=== PATIENT | male | born 1950 | race Caucasian/White ===

== ENCOUNTER 2018-02-02 09:16 | Inpatient (IN) | payer MEDICARE, OTHER ==
[2018-02-02 09:38] LABS: ADD MAN DIFF? NO
[2018-02-02 09:42] LABS: BASOPHIL # 0.1 10^3/ul (0.0-0.1); BASOPHILS % 0.5 % (0.0-2.0); EOSINOPHILS # 0.4 10^3/ul (0.0-0.5); EOSINOPHILS % 2.5 % (0.0-7.0); LYMPHOCYTES # 0.8 10^3/ul (0.8-2.9); LYMPHOCYTES % 5.1 % (15.0-51.0); MEAN CORPUSCULAR HEMOGLOBIN 26.3 pg (29.0-33.0); MEAN CORPUSCULAR HGB CONC 32.6 g/dl (32.0-37.0); MEAN CORPUSCULAR VOLUME 80.8 fl (82.0-101.0); MEAN PLATELET VOLUME 8.2 fl (7.4-10.4); MONOCYTE # 0.7 10^3/ul (0.3-0.9); MONOCYTES % 4.5 % (0.0-11.0); NEUTROPHIL # 14.2 10^3/ul (1.6-7.5); NEUTROPHILS % 86.8 % (39.0-77.0); PLATELET COUNT 245 10^3/UL (140-415); RED BLOOD COUNT 5.32 10^6/ul (4.70-6.10); RED CELL DISTRIBUTION WIDTH 16.1 % (11.5-14.5)
[2018-02-02 09:42] LABS: WHITE BLOOD COUNT 16.3 10^3/ul (4.8-10.8)
[2018-02-02 10:00] LABS: ANION GAP 19 (8-16); BLOOD UREA NITROGEN 18 mg/dl (7-20); CALCIUM 9.2 mg/dl (8.4-10.2); CARBON DIOXIDE 18 mmol/L (21-31); CHLORIDE 99 mmol/L (97-110); CREATININE 1.01 mg/dl (0.61-1.24); GLUCOSE 116 mg/dl (70-220); POTASSIUM 5.1 mmol/L (3.5-5.1); SODIUM 131 mmol/L (135-144)
[2018-02-02 10:04] LABS: D-DIMER 977.39 ng/ml (<460)
[2018-02-02 10:12] LABS: B-TYPE NATRIURETIC PEPTIDE 659 PG/ML (0-125)
[2018-02-02 10:21] LABS: TROPONIN-I < 0.012 ng/ml (0.000-0.120)
[2018-02-02 10:42] LABS: AADO2 Arterial 90.2 mmHg (7.0-24.0); Allen Test ACCEPTAB; Arterial Blood Gas Oxygen Sat 93.7 mmHG (95.0-98.0); Arterial COHb 0.9 % (0.0-3.0); Arterial Fraction of Oxyhgb 92.7 % (93.0-99.0); Arterial HCO3 20.4 mmol/L (22.0-26.0); Arterial MetHb 0.2 % (0.0-1.5); Arterial Total Hemglobin 14.1 g/dl (12.0-18.0); Arterial pCO2 28.8 mmhg (35-45); MODE NASAL CANNULA; Site Left Radial
[2018-02-02] MEDS: FUROSEMIDE 40 MG INJ IV ×2 (13:09→21:07)
[2018-02-02] MEDS: ACETAMINOPHEN 500 MG TAB PO (14:06)
[2018-02-02] MEDS ORDERED: NACL 0.9% 3 ML SYG IV (16:00)
[2018-02-02] MEDS ORDERED: ONDANSETRON 4 MG INJ IV (16:00)
[2018-02-02] MEDS: SOD CHLORIDE 0.9% 100 ML (16:12)
[2018-02-02] MEDS: IOHEXOL 100 ML (16:12)
[2018-02-02] MEDS: LEVOFLOXACIN 500MG/D5W (PMX) 100 ML IVPB (19:05)
[2018-02-02] MEDS: METHYLPREDNISOLONE 40 MG INJ IV (21:08)
[2018-02-02] MEDS: TAMSULOSIN (SR) 0.4 MG CAP PO (21:15)
[2018-02-02] MEDS: ACETYLCYSTEINE 600 MG CAP PO (21:15)
[2018-02-02] MEDS: ATORVASTATIN 80 MG TAB PO (21:58)
[2018-02-02] MEDS: ALBUTEROL/IPRATROPIUM (NEB) 3 ML AMP HHN (22:11)
[2018-02-02] MEDS: ACETAMINOPHEN 325 MG TAB PO (23:11)
[2018-02-02] MEDS: ZOLPIDEM 5 MG TAB PO (23:11)
[2018-02-03] MEDS: ALBUTEROL/IPRATROPIUM (NEB) 3 ML AMP HHN ×6 (00:44→21:14)
[2018-02-03 01:21] LABS: ADD UMIC NO; UR ASCORBIC ACID NEGATIVE (NEGATIVE); UR BILIRUBIN (Dip) NEGATIVE (NEGATIVE); UR BLOOD (Dip) NEGATIVE (NEGATIVE); UR CLARITY CLEAR (CLEAR); UR COLOR STRAW (YELLOW); UR GLUCOSE (Dip) NEGATIVE (NEGATIVE); UR KETONES (Dip) NEGATIVE (NEGATIVE); UR LEUKOCYTE ESTERASE (Dip) NEGATIVE Leu/ul (NEGATIVE); UR NITRITE (Dip) NEGATIVE (NEGATIVE); UR SPECIFIC GRAVITY (Dip) 1.014 (1.003-1.030); UR TOTAL PROTEIN (Dip) NEGATIVE (NEGATIVE); UR UROBILINOGEN (Dip) NEGATIVE (NEGATIVE)
[2018-02-03] MEDS: PANTOPRAZOLE (EC) 40 MG TAB PO (05:10)
[2018-02-03] MEDS: METHYLPREDNISOLONE 40 MG INJ IV ×3 (05:10→21:28)
[2018-02-03 05:18] LABS: ADD MAN DIFF? NO
[2018-02-03 05:19] LABS: WHITE BLOOD COUNT 13.5 10^3/ul (4.8-10.8)
[2018-02-03 05:19] LABS: ABNORMAL IP MESSAGE 1; BASOPHILS % 0.2 % (0.0-2.0); HEMATOCRIT 39.7 % (42.0-52.0); HEMOGLOBIN 13.4 g/dl (14.0-18.0); LYMPHOCYTES # 0.6 10^3/ul (0.8-2.9); LYMPHOCYTES % 4.2 % (15.0-51.0); MEAN CORPUSCULAR HEMOGLOBIN 26.3 pg (29.0-33.0); MEAN CORPUSCULAR HGB CONC 33.8 g/dl (32.0-37.0); MONOCYTE # 0.1 10^3/ul (0.3-0.9); NEUTROPHIL # 12.7 10^3/ul (1.6-7.5); NEUTROPHILS % 94.2 % (39.0-77.0); PLATELET COUNT 277 10^3/UL (140-415); POSITIVE DIFF @See below; RED BLOOD COUNT 5.09 10^6/ul (4.70-6.10); RED CELL DISTRIBUTION WIDTH 16.2 % (11.5-14.5)
[2018-02-03] MEDS: ACETAMINOPHEN 325 MG TAB PO ×2 (05:21→13:58)
[2018-02-03 06:07] LABS: ALANINE AMINOTRANSFERASE 33 IU/L (13-69); ALBUMIN 4.2 g/dl (3.3-4.9); ALBUMIN/GLOBULIN RATIO 1.02; ALKALINE PHOSPHATASE 144 IU/L (42-121); ANION GAP 21 (8-16); ASPARTATE AMINO TRANSFERASE 35 IU/L (15-46); BILIRUBIN,INDIRECT 1.9 mg/dl (0-1.1); BILIRUBIN,TOTAL 1.9 mg/dl (0.2-1.3); BLOOD UREA NITROGEN 24 mg/dl (7-20); CALCIUM 9.1 mg/dl (8.4-10.2); CARBON DIOXIDE 22 mmol/L (21-31); CHLORIDE 94 mmol/L (97-110); CREATININE 1.22 mg/dl (0.61-1.24); GLUCOSE 161 mg/dl (70-220); MAGNESIUM 1.6 mg/dl (1.7-2.5); PHOSPHORUS 5.2 mg/dl (2.5-4.9); POTASSIUM 4.9 mmol/L (3.5-5.1); SODIUM 132 mmol/L (135-144); TOTAL PROTEIN 8.3 g/dl (6.1-8.1)
[2018-02-03 06:17] LABS: TROPONIN-I < 0.012 ng/ml (0.000-0.120)
[2018-02-03] MEDS: FINASTERIDE 5 MG TAB PO (09:03)
[2018-02-03] MEDS: ACETYLCYSTEINE 600 MG CAP PO ×2 (09:03→21:29)
[2018-02-03] MEDS: FUROSEMIDE 40 MG INJ IV (09:04)
[2018-02-03] MEDS: ASPIRIN (EC) 81 MG TAB PO (09:04)
[2018-02-03] MEDS: BENAZEPRIL 40 MG TAB PO (09:04)
[2018-02-03] MEDS: ENOXAPARIN 40 MG/0.4 ML SYG SC (09:05)
[2018-02-03] MEDS: CLOPIDOGREL 75 MG TAB PO (09:49)
[2018-02-03] MEDS: LORATADINE 10 MG TAB PO (09:49)
[2018-02-03] MEDS: ISOSORBIDE MONONITRATE(SR)60 MG TAB PO (09:50)
[2018-02-03 13:06] LABS: TROPONIN-I < 0.012 ng/ml (0.000-0.120)
[2018-02-03] MEDS ORDERED: MAGNESIUM SULFATE 2 GM/50 ML 50 ML IVPB (15:00)
[2018-02-03] MEDS: LEVOFLOXACIN 500MG/D5W (PMX) 100 ML IVPB (15:14)
[2018-02-03] MEDS: MAGNESIUM SULFATE 1 GM/D5W 100 ML IVPB ×2 (16:30→18:04)
[2018-02-03] MEDS: morphine 2 MG INJ IV (21:17)
[2018-02-03] MEDS: METOPROLOL (XL) 50 MG TAB PO (21:18)
[2018-02-03] MEDS: TAMSULOSIN (SR) 0.4 MG CAP PO (21:28)
[2018-02-03] MEDS: ATORVASTATIN 80 MG TAB PO (21:28)
[2018-02-03] MEDS: HEPARIN 5,000 UNIT/0.5 ML VIAL SC (21:38)
[2018-02-03] MEDS: ZOLPIDEM 5 MG TAB PO (23:18)
[2018-02-04] MEDS: ALBUTEROL/IPRATROPIUM (NEB) 3 ML AMP HHN ×6 (01:30→20:39)
[2018-02-04] MEDS: ACETAMINOPHEN 325 MG TAB PO (03:49)
[2018-02-04] MEDS: METHYLPREDNISOLONE 40 MG INJ IV ×3 (07:08→21:03)
[2018-02-04] MEDS: PANTOPRAZOLE (EC) 40 MG TAB PO (07:08)
[2018-02-04] MEDS: CLOPIDOGREL 75 MG TAB PO (08:26)
[2018-02-04] MEDS: LORATADINE 10 MG TAB PO (08:26)
[2018-02-04] MEDS: ISOSORBIDE MONONITRATE(SR)60 MG TAB PO (08:27)
[2018-02-04] MEDS: METOPROLOL (XL) 50 MG TAB PO ×2 (08:27→21:00)
[2018-02-04] MEDS: ASPIRIN (EC) 81 MG TAB PO (08:27)
[2018-02-04] MEDS: FINASTERIDE 5 MG TAB PO (08:27)
[2018-02-04] MEDS: ACETYLCYSTEINE 600 MG CAP PO (08:27)
[2018-02-04] MEDS: FUROSEMIDE 40 MG INJ IV (08:28)
[2018-02-04] MEDS: morphine 2 MG INJ IV (08:28)
[2018-02-04] MEDS: HEPARIN 5,000 UNIT/0.5 ML VIAL SC ×2 (08:33→21:12)
[2018-02-04 08:58] LABS: ADD MAN DIFF? NO
[2018-02-04 09:09] LABS: BASOPHILS % 0.1 % (0.0-2.0); HEMOGLOBIN 12.7 g/dl (14.0-18.0); LYMPHOCYTES # 0.8 10^3/ul (0.8-2.9); LYMPHOCYTES % 4.5 % (15.0-51.0); MEAN CORPUSCULAR HEMOGLOBIN 26.1 pg (29.0-33.0); MEAN CORPUSCULAR HGB CONC 33.4 g/dl (32.0-37.0); MEAN CORPUSCULAR VOLUME 78.2 fl (82.0-101.0); MEAN PLATELET VOLUME 9.1 fl (7.4-10.4); MONOCYTE # 0.7 10^3/ul (0.3-0.9); NEUTROPHIL # 15.9 10^3/ul (1.6-7.5); PLATELET COUNT 273 10^3/UL (140-415); RED BLOOD COUNT 4.86 10^6/ul (4.70-6.10)
[2018-02-04 09:09] LABS: WHITE BLOOD COUNT 17.4 10^3/ul (4.8-10.8)
[2018-02-04 09:33] LABS: MAGNESIUM 2.2 mg/dl (1.7-2.5)
[2018-02-04 09:33] LABS: PHOSPHORUS 4.7 mg/dl (2.5-4.9)
[2018-02-04 09:44] LABS: CHOLESTEROL 105 mg/dl (100-200)
[2018-02-04 09:44] LABS: CHOL/HDL RATIO 3.3 RATIO; HDL CHOLESTEROL 31 mg/dl (30-78); LDL CHOLESTEROL,CALCULATED 54 mg/dl; TRIGLYCERIDES 98 mg/dl (0-149)
[2018-02-04 09:46] LABS: ANION GAP 16 (8-16); BLOOD UREA NITROGEN 32 mg/dl (7-20); CALCIUM 8.8 mg/dl (8.4-10.2); CARBON DIOXIDE 25 mmol/L (21-31); CHLORIDE 91 mmol/L (97-110); CREATININE 1.02 mg/dl (0.61-1.24); GLUCOSE 164 mg/dl (70-220); POTASSIUM 5.2 mmol/L (3.5-5.1); SODIUM 127 mmol/L (135-144)
[2018-02-04] MEDS: LEVOFLOXACIN 500MG/D5W (PMX) 100 ML IVPB (15:14)
[2018-02-04 19:42] LABS: SODIUM,URINE RANDOM < 13 mmol/L (30-90)
[2018-02-04] MEDS: ATORVASTATIN 80 MG TAB PO (20:55)
[2018-02-04] MEDS: HYDROCODONE/APAP (5/325) TAB PO (20:59)
[2018-02-04] MEDS: TAMSULOSIN (SR) 0.4 MG CAP PO (21:00)
[2018-02-04 22:37] LABS: OSMOLALITY,URINE 334 mOsm/kg (250-1200)
[2018-02-04] MEDS: CEPASTAT LOZENGE MT (22:42)
[2018-02-04] MEDS: LORAZEPAM 2 MG INJ IV (22:47)
[2018-02-05] MEDS: ALBUTEROL/IPRATROPIUM (NEB) 3 ML AMP HHN ×6 (00:30→20:35)
[2018-02-05] MEDS: METHYLPREDNISOLONE 40 MG INJ IV ×2 (05:17→13:28)
[2018-02-05] MEDS: morphine 2 MG INJ IV ×2 (05:18→19:36)
[2018-02-05] MEDS: PANTOPRAZOLE (EC) 40 MG TAB PO (05:25)
[2018-02-05] MEDS: CEPASTAT LOZENGE MT ×2 (07:37→21:25)
[2018-02-05] MEDS: HYDROCODONE/APAP (5/325) TAB PO (07:38)
[2018-02-05 09:11] LABS: ADD MAN DIFF? NO
[2018-02-05 09:22] LABS: BASOPHILS % 0.1 % (0.0-2.0); HEMATOCRIT 39.2 % (42.0-52.0); HEMOGLOBIN 12.9 g/dl (14.0-18.0); LYMPHOCYTES # 0.7 10^3/ul (0.8-2.9); MEAN CORPUSCULAR HEMOGLOBIN 25.9 pg (29.0-33.0); MEAN CORPUSCULAR HGB CONC 32.9 g/dl (32.0-37.0); MEAN CORPUSCULAR VOLUME 78.7 fl (82.0-101.0); MEAN PLATELET VOLUME 9.3 fl (7.4-10.4); MONOCYTE # 0.6 10^3/ul (0.3-0.9); MONOCYTES % 3.7 % (0.0-11.0); NEUTROPHIL # 15.6 10^3/ul (1.6-7.5); NEUTROPHILS % 91.4 % (39.0-77.0); PLATELET COUNT 278 10^3/UL (140-415); RED BLOOD COUNT 4.98 10^6/ul (4.70-6.10); RED CELL DISTRIBUTION WIDTH 15.9 % (11.5-14.5)
[2018-02-05 09:22] LABS: WHITE BLOOD COUNT 17.1 10^3/ul (4.8-10.8)
[2018-02-05] MEDS: LORATADINE 10 MG TAB PO (09:29)
[2018-02-05] MEDS: ASPIRIN (EC) 81 MG TAB PO (09:29)
[2018-02-05] MEDS: CLOPIDOGREL 75 MG TAB PO (09:29)
[2018-02-05] MEDS: FINASTERIDE 5 MG TAB PO (09:30)
[2018-02-05] MEDS: METOPROLOL (XL) 50 MG TAB PO ×2 (09:30→20:13)
[2018-02-05] MEDS: ISOSORBIDE MONONITRATE(SR)60 MG TAB PO (09:30)
[2018-02-05 09:34] LABS: ANION GAP 14 (8-16); BLOOD UREA NITROGEN 25 mg/dl (7-20); CALCIUM 8.8 mg/dl (8.4-10.2); CARBON DIOXIDE 28 mmol/L (21-31); CHLORIDE 93 mmol/L (97-110); CREATININE 0.87 mg/dl (0.61-1.24); GLUCOSE 157 mg/dl (70-220); POTASSIUM 5.1 mmol/L (3.5-5.1); SODIUM 130 mmol/L (135-144)
[2018-02-05 09:40] LABS: PHOSPHORUS 3.5 mg/dl (2.5-4.9)
[2018-02-05] MEDS: DOCUSATE SODIUM 100 MG CAP PO (12:14)
[2018-02-05] MEDS: SALINE 0.65% 45 ML NAS SPRAY NASAL (12:15)
[2018-02-05] MEDS: LORAZEPAM 2 MG INJ IV ×2 (13:23→21:26)
[2018-02-05] MEDS: LEVOFLOXACIN 500MG/D5W (PMX) 100 ML IVPB (14:23)
[2018-02-05] MEDS: ATORVASTATIN 80 MG TAB PO (20:12)
[2018-02-05] MEDS: GUAIFENESIN/DM 5ML CUP PO (20:12)
[2018-02-05] MEDS: TAMSULOSIN (SR) 0.4 MG CAP PO (20:12)
[2018-02-05] MEDS ORDERED: GABAPENTIN (50 MG/ML PO SYG) GTB (21:00)
[2018-02-05] MEDS: GABAPENTIN (50 MG/ML PO SYG) GTB (21:25)
[2018-02-06] MEDS: ALBUTEROL/IPRATROPIUM (NEB) 3 ML AMP HHN ×6 (01:26→21:36)
[2018-02-06] MEDS: GUAIFENESIN/DM 5ML CUP PO ×2 (06:44→19:44)
[2018-02-06] MEDS: PANTOPRAZOLE (EC) 40 MG TAB PO (06:44)
[2018-02-06] MEDS: morphine 2 MG INJ IV (06:46)
[2018-02-06] MEDS: CLOPIDOGREL 75 MG TAB PO (09:10)
[2018-02-06] MEDS: GABAPENTIN (50 MG/ML PO SYG) GTB ×3 (09:10→20:41)
[2018-02-06] MEDS: METHYLPREDNISOLONE 40 MG INJ IV (09:10)
[2018-02-06] MEDS: METOPROLOL (XL) 50 MG TAB PO ×2 (09:11→20:42)
[2018-02-06] MEDS: ISOSORBIDE MONONITRATE(SR)60 MG TAB PO (09:11)
[2018-02-06] MEDS: FINASTERIDE 5 MG TAB PO (09:11)
[2018-02-06] MEDS: ASPIRIN (EC) 81 MG TAB PO (09:11)
[2018-02-06] MEDS: LORATADINE 10 MG TAB PO (09:11)
[2018-02-06] MEDS: LORAZEPAM 2 MG INJ IV ×2 (12:26→20:42)
[2018-02-06 15:03] LABS: Allen Test ACCEPTAB; Arterial Base Excess -1.6 mmol/L (-3.0-3); Arterial Blood Gas Oxygen Sat 88.2 mmHG (95.0-98.0); Arterial COHb 0.6 % (0.0-3.0); Arterial Fraction of Oxyhgb 87.5 % (93.0-99.0); Arterial HCO3 22.5 mmol/L (22.0-26.0); Arterial MetHb 0.2 % (0.0-1.5); Arterial Total Hemglobin 14.3 g/dl (12.0-18.0); Arterial pCO2 36.3 mmhg (35-45); Site Right Radial
[2018-02-06] MEDS: LEVOFLOXACIN 500MG/D5W (PMX) 100 ML IVPB (15:35)
[2018-02-06 15:50] LABS: AADO2 Arterial 49.5 mmHg (7.0-24.0); MODE ROOM AIR
[2018-02-06] MEDS: morphine LIQ (10 MG/5 ML) CUP PO (19:43)
[2018-02-06] MEDS: TAMSULOSIN (SR) 0.4 MG CAP PO (20:41)
[2018-02-06] MEDS: ATORVASTATIN 80 MG TAB PO (20:42)
[2018-02-07] MEDS: HYDROCODONE/APAP (5/325) TAB PO ×4 (00:38→21:58)
[2018-02-07] MEDS: GUAIFENESIN/DM 5ML CUP PO ×2 (00:38→06:41)
[2018-02-07] MEDS: ALBUTEROL/IPRATROPIUM (NEB) 3 ML AMP HHN ×6 (01:02→21:11)
[2018-02-07] MEDS: PANTOPRAZOLE (EC) 40 MG TAB PO (06:41)
[2018-02-07 07:04] LABS: ADD MAN DIFF? NO
[2018-02-07 07:11] LABS: ABNORMAL IP MESSAGE 1; BASOPHILS % 0.1 % (0.0-2.0); EOSINOPHILS # 0.1 10^3/ul (0.0-0.5); EOSINOPHILS % 0.4 % (0.0-7.0); HEMATOCRIT 41.6 % (42.0-52.0); HEMOGLOBIN 13.4 g/dl (14.0-18.0); LYMPHOCYTES # 2.6 10^3/ul (0.8-2.9); LYMPHOCYTES % 18.6 % (15.0-51.0); MEAN CORPUSCULAR HEMOGLOBIN 25.9 pg (29.0-33.0); MEAN CORPUSCULAR HGB CONC 32.2 g/dl (32.0-37.0); MEAN CORPUSCULAR VOLUME 80.5 fl (82.0-101.0); MEAN PLATELET VOLUME 9.1 fl (7.4-10.4); MONOCYTE # 1.8 10^3/ul (0.3-0.9); MONOCYTES % 12.4 % (0.0-11.0); NEUTROPHIL # 9.6 10^3/ul (1.6-7.5); NEUTROPHILS % 67.7 % (39.0-77.0); PLATELET COUNT 270 10^3/UL (140-415); POSITIVE DIFF @See below; RED BLOOD COUNT 5.17 10^6/ul (4.70-6.10); RED CELL DISTRIBUTION WIDTH 15.9 % (11.5-14.5)
[2018-02-07 07:11] LABS: WHITE BLOOD COUNT 14.2 10^3/ul (4.8-10.8)
[2018-02-07 07:37] LABS: ANION GAP 6 (8-16); BLOOD UREA NITROGEN 16 mg/dl (7-20); CALCIUM 8.9 mg/dl (8.4-10.2); CARBON DIOXIDE 30 mmol/L (21-31); CHLORIDE 99 mmol/L (97-110); CREATININE 0.87 mg/dl (0.61-1.24); GLUCOSE 104 mg/dl (70-220); POTASSIUM 4.3 mmol/L (3.5-5.1); SODIUM 131 mmol/L (135-144)
[2018-02-07] MEDS: ASPIRIN (EC) 81 MG TAB PO (08:38)
[2018-02-07] MEDS: GABAPENTIN (50 MG/ML PO SYG) GTB ×3 (08:39→21:53)
[2018-02-07] MEDS: METHYLPREDNISOLONE 40 MG INJ IV (08:39)
[2018-02-07] MEDS: METOPROLOL (XL) 50 MG TAB PO ×2 (08:39→21:54)
[2018-02-07] MEDS: FINASTERIDE 5 MG TAB PO (08:39)
[2018-02-07] MEDS: LORATADINE 10 MG TAB PO (08:39)
[2018-02-07] MEDS: ISOSORBIDE MONONITRATE(SR)60 MG TAB PO (08:39)
[2018-02-07] MEDS: CLOPIDOGREL 75 MG TAB PO (08:39)
[2018-02-07] MEDS: LORAZEPAM 2 MG INJ IV (11:43)
[2018-02-07] MEDS: LEVOFLOXACIN 500MG/D5W (PMX) 100 ML IVPB (15:11)
[2018-02-07] MEDS: TAMSULOSIN (SR) 0.4 MG CAP PO (21:54)
[2018-02-07] MEDS: ATORVASTATIN 80 MG TAB PO (21:54)
[2018-02-08] MEDS: ALBUTEROL/IPRATROPIUM (NEB) 3 ML AMP HHN ×6 (01:26→20:29)
[2018-02-08] MEDS: CEPASTAT LOZENGE MT ×3 (03:19→20:53)
[2018-02-08] MEDS: LORAZEPAM 2 MG INJ IV ×3 (05:27→22:55)
[2018-02-08] MEDS: PANTOPRAZOLE (EC) 40 MG TAB PO (05:28)
[2018-02-08] MEDS: HYDROCODONE/APAP (5/325) TAB PO ×2 (06:17→12:18)
[2018-02-08] MEDS: GABAPENTIN (50 MG/ML PO SYG) GTB ×3 (08:31→20:44)
[2018-02-08] MEDS: ASPIRIN (EC) 81 MG TAB PO (08:31)
[2018-02-08] MEDS: LORATADINE 10 MG TAB PO (08:32)
[2018-02-08] MEDS: FINASTERIDE 5 MG TAB PO (08:32)
[2018-02-08] MEDS: predniSONE 20 MG TAB PO (08:32)
[2018-02-08] MEDS: CLOPIDOGREL 75 MG TAB PO (08:32)
[2018-02-08] MEDS: METOPROLOL (XL) 50 MG TAB PO ×2 (08:33→20:45)
[2018-02-08] MEDS: ISOSORBIDE MONONITRATE(SR)60 MG TAB PO (08:34)
[2018-02-08] MEDS: FUROSEMIDE 40 MG TAB PO (12:18)
[2018-02-08] MEDS: LEVOFLOXACIN 500MG/D5W (PMX) 100 ML IVPB (15:00)
[2018-02-08] MEDS ORDERED: LEVOFLOXACIN 500 MG TAB PO (15:00)
[2018-02-08] MEDS: ATORVASTATIN 80 MG TAB PO (20:45)
[2018-02-08] MEDS: TAMSULOSIN (SR) 0.4 MG CAP PO (20:45)
[2018-02-08] MEDS: morphine LIQ (10 MG/5 ML) CUP PO (20:46)
[2018-02-08] MEDS: DOCUSATE SODIUM 100 MG CAP PO (22:55)
[2018-02-09] MEDS: ALBUTEROL/IPRATROPIUM (NEB) 3 ML AMP HHN ×5 (00:58→16:50)
[2018-02-09] MEDS: HYDROCODONE/APAP (5/325) TAB PO ×2 (04:10→11:59)
[2018-02-09] MEDS: PANTOPRAZOLE (EC) 40 MG TAB PO (06:21)
[2018-02-09] MEDS: LEVOFLOXACIN 500 MG TAB PO (06:21)
[2018-02-09 07:58] LABS: ADD MAN DIFF? NO
[2018-02-09 08:01] LABS: BASOPHILS % 0.2 % (0.0-2.0); EOSINOPHILS # 0.1 10^3/ul (0.0-0.5); EOSINOPHILS % 0.7 % (0.0-7.0); HEMATOCRIT 40.8 % (42.0-52.0); HEMOGLOBIN 13.1 g/dl (14.0-18.0); LYMPHOCYTES # 2.1 10^3/ul (0.8-2.9); LYMPHOCYTES % 12.9 % (15.0-51.0); MEAN CORPUSCULAR HEMOGLOBIN 25.7 pg (29.0-33.0); MEAN CORPUSCULAR HGB CONC 32.1 g/dl (32.0-37.0); MEAN CORPUSCULAR VOLUME 80.2 fl (82.0-101.0); MEAN PLATELET VOLUME 8.7 fl (7.4-10.4); MONOCYTE # 1.4 10^3/ul (0.3-0.9); MONOCYTES % 8.8 % (0.0-11.0); NEUTROPHIL # 12.2 10^3/ul (1.6-7.5); PLATELET COUNT 290 10^3/UL (140-415); RED BLOOD COUNT 5.09 10^6/ul (4.70-6.10)
[2018-02-09 08:01] LABS: WHITE BLOOD COUNT 16.1 10^3/ul (4.8-10.8)
[2018-02-09 08:20] LABS: MAGNESIUM 1.9 mg/dl (1.7-2.5)
[2018-02-09 08:23] LABS: ANION GAP 14 (8-16); BLOOD UREA NITROGEN 18 mg/dl (7-20); CALCIUM 8.8 mg/dl (8.4-10.2); CARBON DIOXIDE 32 mmol/L (21-31); CHLORIDE 91 mmol/L (97-110); CREATININE 0.83 mg/dl (0.61-1.24); GLUCOSE 99 mg/dl (70-220); POTASSIUM 4.3 mmol/L (3.5-5.1); SODIUM 133 mmol/L (135-144)
[2018-02-09] MEDS: LORATADINE 10 MG TAB PO (09:00)
[2018-02-09] MEDS: GABAPENTIN (50 MG/ML PO SYG) GTB ×2 (09:05→13:03)
[2018-02-09] MEDS: CLOPIDOGREL 75 MG TAB PO (09:06)
[2018-02-09] MEDS: FUROSEMIDE 40 MG TAB PO (09:06)
[2018-02-09] MEDS: ASPIRIN (EC) 81 MG TAB PO (09:07)
[2018-02-09] MEDS: ISOSORBIDE MONONITRATE(SR)60 MG TAB PO (09:07)
[2018-02-09] MEDS: predniSONE 20 MG TAB PO (09:07)
[2018-02-09] MEDS: FINASTERIDE 5 MG TAB PO (09:08)
[2018-02-09] MEDS: METOPROLOL (XL) 50 MG TAB PO (09:08)
[2018-02-09] MEDS: LORAZEPAM 2 MG INJ IV ×2 (09:15→17:26)
== END 2018-02-09 18:00 | DRG 196 ==
LOC: E/R 09:16 → MS3 19:27 → TEL 02-03 20:06 → MS3 14:56
DX: J84.112 Idiopathic pulmonary fibrosis (principal); J96.21 Acute and chronic respiratory failure with hypoxia; J18.9 Pneumonia, unspecified organism; E87.1 Hypo-osmolality and hyponatremia; E87.2 Acidosis; I25.810 Atherosclerosis of coronary artery bypass graft(s) without angina pectoris; I50.32 Chronic diastolic (congestive) heart failure; R04.2 Hemoptysis; I11.0 Hypertensive heart disease with heart failure; Z99.81 Dependence on supplemental oxygen; E87.5 Hyperkalemia; J43.2 Centrilobular emphysema; E78.5 Hyperlipidemia, unspecified; N40.0 Benign prostatic hyperplasia without lower urinary tract symptoms; Z79.82 Long term (current) use of aspirin; Z95.1 Presence of aortocoronary bypass graft; Z87.891 Personal history of nicotine dependence; Z79.02 Long term (current) use of antithrombotics/antiplatelets
CPT/HCPCS: 36415; 36600; 71045; 71275; 80048; 80053; 80061; 81003; 82803; 83735; 83880; 83935; 84100; 84300; 84484; 85025; 85378; 87040; 93005; 93306; 94640; 94664; 96374; 96375; 97116; 97162; 99291-25

== ENCOUNTER 2018-03-06 01:46 | Inpatient (IN) | payer MEDICARE, OTHER ==
[2018-03-06] MEDS ORDERED: METHYLPREDNISOLONE 125 MG INJ (01:57)
[2018-03-06] MEDS: SODIUM CHLORIDE 0.9% 1L BAG IV* (02:00)
[2018-03-06] MEDS: METHYLPREDNISOLONE 125 MG INJ IV ×3 (02:03→12:13)
[2018-03-06] MEDS: IPRATROPIUM (NEB) 0.5 MG/2.5 ML AMP INH (02:18)
[2018-03-06] MEDS: LEVALBUTEROL (NEB) 1.25 MG/0.5 ML AMP INH (02:18)
[2018-03-06 02:19] LABS: ADD MAN DIFF? NO
[2018-03-06 02:25] LABS: WHITE BLOOD COUNT 9.5 10^3/ul (4.8-10.8)
[2018-03-06 02:25] LABS: BASOPHILS % 0.4 % (0.0-2.0); EOSINOPHILS # 0.5 10^3/ul (0.0-0.5); EOSINOPHILS % 5.3 % (0.0-7.0); HEMATOCRIT 37.3 % (42.0-52.0); HEMOGLOBIN 12.2 g/dl (14.0-18.0); LYMPHOCYTES # 1.5 10^3/ul (0.8-2.9); LYMPHOCYTES % 16.1 % (15.0-51.0); MEAN CORPUSCULAR HEMOGLOBIN 25.1 pg (29.0-33.0); MEAN CORPUSCULAR HGB CONC 32.7 g/dl (32.0-37.0); MEAN CORPUSCULAR VOLUME 76.6 fl (82.0-101.0); MEAN PLATELET VOLUME 8.5 fl (7.4-10.4); MONOCYTE # 0.8 10^3/ul (0.3-0.9); MONOCYTES % 8.7 % (0.0-11.0); NEUTROPHIL # 6.5 10^3/ul (1.6-7.5); NEUTROPHILS % 68.2 % (39.0-77.0); PLATELET COUNT 298 10^3/UL (140-415); RED BLOOD COUNT 4.87 10^6/ul (4.70-6.10); RED CELL DISTRIBUTION WIDTH 17.2 % (11.5-14.5)
[2018-03-06 02:42] LABS: LACTIC ACID 1.7 mmol/L (0.5-2.0)
[2018-03-06 02:43] LABS: ALANINE AMINOTRANSFERASE 48 IU/L (13-69); ALBUMIN 3.6 g/dl (3.3-4.9); ALBUMIN/GLOBULIN RATIO 1.05; ALKALINE PHOSPHATASE 136 IU/L (42-121); ANION GAP 16 (8-16); ASPARTATE AMINO TRANSFERASE 33 IU/L (15-46); BILIRUBIN,INDIRECT 1.4 mg/dl (0-1.1); BILIRUBIN,TOTAL 1.4 mg/dl (0.2-1.3); BLOOD UREA NITROGEN 11 mg/dl (7-20); CALCIUM 8.2 mg/dl (8.4-10.2); CARBON DIOXIDE 23 mmol/L (21-31); CHLORIDE 92 mmol/L (97-110); CREATININE 0.79 mg/dl (0.61-1.24); GLUCOSE 111 mg/dl (70-220); PARTIAL THROMBOPLASTIN TIME 33.2 Sec (25.0-35.0); POTASSIUM 5.1 mmol/L (3.5-5.1); PROTIME 13.3 Sec (11.9-14.9); SODIUM 126 mmol/L (135-144)
[2018-03-06 02:54] LABS: TROPONIN-I 0.012 ng/ml (0.000-0.120)
[2018-03-06 04:17] LABS: AADO2 Arterial 170.6 mmHg (7.0-24.0); Allen Test ACCEPTAB; Arterial Blood Gas Oxygen Sat 93.8 mmHG (95.0-98.0); Arterial Fraction of Oxyhgb 92.6 % (93.0-99.0); Arterial HCO3 20.5 mmol/L (22.0-26.0); Arterial MetHb 0.3 % (0.0-1.5); Arterial Total Hemglobin 12.8 g/dl (12.0-18.0); Arterial pCO2 32.1 mmhg (35-45); MODE NASAL CANNULA; Site Right Radial
[2018-03-06] MEDS: ACETAMINOPHEN 325 MG TAB PO ×2 (04:24→08:14)
[2018-03-06] MEDS: LEVOFLOXACIN 750MG/D5W (PMX) 150 ML IVPB (05:07)
[2018-03-06 06:28] LABS: LACTIC ACID 1.6 mmol/L (0.5-2.0)
[2018-03-06 07:49] LABS: LACTIC ACID 2.8 mmol/L (0.5-2.0)
[2018-03-06] MEDS ORDERED: ALBUTEROL HFA 8 GM INHALER INH (08:00)
[2018-03-06] MEDS ORDERED: ONDANSETRON 4 MG INJ IV (08:00)
[2018-03-06] MEDS ORDERED: DOCUSATE SODIUM 100 MG CAP PO (08:00)
[2018-03-06] MEDS ORDERED: NA PHOSPHATE/BIPHOS 133 ML ENEMA PR (08:00)
[2018-03-06] MEDS ORDERED: BISACODYL (EC) 5 MG TAB PO (08:00)
[2018-03-06] MEDS ORDERED: IPRATROPIUM (NEB) 0.5 MG/2.5 ML AMP INH (08:00)
[2018-03-06] MEDS ORDERED: ALBUTEROL/IPRATROPIUM (NEB) 3 ML AMP NEB (08:00)
[2018-03-06] MEDS ORDERED: ACETAMINOPHEN 650MG/20.3ML CUP PO (08:00)
[2018-03-06] MEDS ORDERED: FLUMAZENIL 0.5 MG INJ IV (08:00)
[2018-03-06] MEDS ORDERED: MAGNESIUM HYDROXIDE 30ML CUP PO (08:00)
[2018-03-06] MEDS: ASPIRIN (EC) 81 MG TAB PO (08:14)
[2018-03-06] MEDS: FAMOTIDINE 20 MG INJ IV ×2 (08:14→20:16)
[2018-03-06] MEDS: CEFTRIAXONE 1 GM/50 ML (PMX) 50 ML IVPB (08:14)
[2018-03-06] MEDS: FINASTERIDE 5 MG TAB PO (08:14)
[2018-03-06] MEDS: SOD CHLORIDE 0.9% 1,000 ML IV (08:14)
[2018-03-06] MEDS: LORAZEPAM 1 MG TAB PO (08:14)
[2018-03-06] MEDS: ENOXAPARIN 40 MG/0.4 ML SYG SC (08:23)
[2018-03-06 08:40] LABS: HEMOGLOBIN A1C 6.8 % (0-5.9)
[2018-03-06] MEDS: BENAZEPRIL 40 MG TAB PO (09:20)
[2018-03-06] MEDS: LORATADINE 10 MG TAB PO (09:20)
[2018-03-06] MEDS: ALBUTEROL/IPRATROPIUM (NEB) 3 ML AMP NEB ×4 (09:39→21:31)
[2018-03-06] MEDS: HYDROCODONE/APAP (5/325) TAB PO (13:43)
[2018-03-06] MEDS: NITROGLYCERIN (SL) 0.4 MG TAB SL (14:55)
[2018-03-06] MEDS: morphine 2 MG INJ IV ×2 (15:08→22:53)
[2018-03-06 15:42] LABS: TROPONIN-I < 0.010 ng/ml (0.000-0.120)
[2018-03-06] MEDS: METHYLPREDNISOLONE 40 MG INJ IV (17:18)
[2018-03-06] MEDS: TAMSULOSIN (SR) 0.4 MG CAP PO (20:12)
[2018-03-06] MEDS: ATORVASTATIN 80 MG TAB PO (20:12)
[2018-03-06] MEDS: METOPROLOL 25 MG TAB PO (20:13)
[2018-03-07] MEDS: ALBUTEROL/IPRATROPIUM (NEB) 3 ML AMP NEB ×5 (01:28→17:01)
[2018-03-07] MEDS: ACETAMINOPHEN 325 MG TAB PO (03:33)
[2018-03-07] MEDS: HYDROCODONE/APAP (5/325) TAB PO ×5 (03:34→20:46)
[2018-03-07 05:27] LABS: ADD MAN DIFF? NO
[2018-03-07 05:33] LABS: BASOPHILS % 0.1 % (0.0-2.0); HEMATOCRIT 33.5 % (42.0-52.0); HEMOGLOBIN 11.1 g/dl (14.0-18.0); LYMPHOCYTES # 0.6 10^3/ul (0.8-2.9); LYMPHOCYTES % 5.1 % (15.0-51.0); MEAN CORPUSCULAR HEMOGLOBIN 25.3 pg (29.0-33.0); MEAN CORPUSCULAR HGB CONC 33.1 g/dl (32.0-37.0); MEAN CORPUSCULAR VOLUME 76.3 fl (82.0-101.0); MEAN PLATELET VOLUME 8.6 fl (7.4-10.4); MONOCYTE # 0.4 10^3/ul (0.3-0.9); MONOCYTES % 3.6 % (0.0-11.0); NEUTROPHIL # 10.7 10^3/ul (1.6-7.5); NEUTROPHILS % 90.2 % (39.0-77.0); PLATELET COUNT 259 10^3/UL (140-415); RED BLOOD COUNT 4.39 10^6/ul (4.70-6.10)
[2018-03-07 05:33] LABS: WHITE BLOOD COUNT 11.9 10^3/ul (4.8-10.8)
[2018-03-07] MEDS: METHYLPREDNISOLONE 40 MG INJ IV ×4 (05:44→19:23)
[2018-03-07 06:04] LABS: ANION GAP 15 (8-16); BLOOD UREA NITROGEN 10 mg/dl (7-20); CALCIUM 8.5 mg/dl (8.4-10.2); CARBON DIOXIDE 23 mmol/L (21-31); CHLORIDE 98 mmol/L (97-110); CREATININE 0.59 mg/dl (0.61-1.24); GLUCOSE 164 mg/dl (70-220); POTASSIUM 4.5 mmol/L (3.5-5.1); SODIUM 131 mmol/L (135-144)
[2018-03-07] MEDS: LORAZEPAM 1 MG TAB PO ×3 (07:30→19:42)
[2018-03-07] MEDS: SOD CHLORIDE 0.9% 1,000 ML IV (07:35)
[2018-03-07] MEDS: LORATADINE 10 MG TAB PO ×2 (08:38→08:42)
[2018-03-07] MEDS: FAMOTIDINE 20 MG INJ IV ×2 (08:38→20:47)
[2018-03-07] MEDS: FINASTERIDE 5 MG TAB PO (08:38)
[2018-03-07] MEDS: ASPIRIN (EC) 81 MG TAB PO (08:38)
[2018-03-07] MEDS: METOPROLOL 25 MG TAB PO (08:39)
[2018-03-07] MEDS: BENAZEPRIL 40 MG TAB PO (08:39)
[2018-03-07] MEDS: CEFTRIAXONE 1 GM/50 ML (PMX) 50 ML IVPB (08:40)
[2018-03-07] MEDS: ENOXAPARIN 40 MG/0.4 ML SYG SC ×2 (08:41→20:50)
[2018-03-07] MEDS: IOHEXOL 100 ML (12:35)
[2018-03-07] MEDS: SOD CHLORIDE 0.9% 100 ML (12:36)
[2018-03-07 13:20] LABS: TROPONIN-I 0.766 ng/ml (0.000-0.120)
[2018-03-07] MEDS: INSULIN ASPART [NOVOLOG] 3 ML PEN SC ×2 (17:35→20:50)
[2018-03-07] MEDS: NITROGLYCERIN (SL) 0.4 MG TAB SL ×3 (18:15→18:25)
[2018-03-07] MEDS: morphine 2 MG INJ IV (18:18)
[2018-03-07] MEDS: ATORVASTATIN 80 MG TAB PO (20:46)
[2018-03-07] MEDS: ZOLPIDEM 5 MG TAB PO (20:46)
[2018-03-07] MEDS: METOPROLOL 50 MG TAB PO (20:47)
[2018-03-07] MEDS: TAMSULOSIN (SR) 0.4 MG CAP PO (20:47)
[2018-03-07] MEDS: LEVALBUTEROL (NEB) 0.63 MG/3 ML AMP HHN (21:30)
[2018-03-08] MEDS: METHYLPREDNISOLONE 40 MG INJ IV ×5 (00:36→23:56)
[2018-03-08] MEDS: LEVALBUTEROL (NEB) 0.63 MG/3 ML AMP HHN ×6 (01:18→21:01)
[2018-03-08] MEDS: ACCU-CHEK XX (02:00)
[2018-03-08] MEDS: LORAZEPAM 1 MG TAB PO ×3 (03:23→20:37)
[2018-03-08] MEDS: HYDROCODONE/APAP (5/325) TAB PO ×3 (04:40→19:40)
[2018-03-08 05:02] LABS: ADD MAN DIFF? NO
[2018-03-08 05:27] LABS: ABNORMAL IP MESSAGE 1; BASOPHILS % 0.1 % (0.0-2.0); HEMATOCRIT 34.3 % (42.0-52.0); HEMOGLOBIN 11.3 g/dl (14.0-18.0); LYMPHOCYTES # 0.6 10^3/ul (0.8-2.9); LYMPHOCYTES % 3.2 % (15.0-51.0); MEAN CORPUSCULAR HEMOGLOBIN 25.4 pg (29.0-33.0); MEAN CORPUSCULAR HGB CONC 32.9 g/dl (32.0-37.0); MEAN CORPUSCULAR VOLUME 77.1 fl (82.0-101.0); MEAN PLATELET VOLUME 9.1 fl (7.4-10.4); MONOCYTE # 0.8 10^3/ul (0.3-0.9); MONOCYTES % 4.7 % (0.0-11.0); NEUTROPHIL # 15.7 10^3/ul (1.6-7.5); PLATELET COUNT 288 10^3/UL (140-415); POSITIVE DIFF @See below; RED BLOOD COUNT 4.45 10^6/ul (4.70-6.10); RED CELL DISTRIBUTION WIDTH 17.6 % (11.5-14.5)
[2018-03-08 05:27] LABS: WHITE BLOOD COUNT 17.3 10^3/ul (4.8-10.8)
[2018-03-08 05:33] LABS: LACTIC ACID 2.8 mmol/L (0.5-2.0)
[2018-03-08] MEDS: SOD CHLORIDE 0.9% 1,000 ML IV (05:35)
[2018-03-08 05:58] LABS: ANION GAP 15 (8-16); BLOOD UREA NITROGEN 15 mg/dl (7-20); CALCIUM 8.6 mg/dl (8.4-10.2); CARBON DIOXIDE 24 mmol/L (21-31); CHLORIDE 97 mmol/L (97-110); GLUCOSE 139 mg/dl (70-220); POTASSIUM 4.5 mmol/L (3.5-5.1); SODIUM 131 mmol/L (135-144)
[2018-03-08 07:30] LABS: AADO2 Arterial 509.4 mmHg (7.0-24.0); Arterial Base Excess 0.8 mmol/L (-3.0-3); Arterial Blood Gas Oxygen Sat 99.1 mmHG (95.0-98.0); Arterial COHb 0.5 % (0.0-3.0); Arterial Fraction of Oxyhgb 98.3 % (93.0-99.0); Arterial HCO3 25.2 mmol/L (22.0-26.0); Arterial MetHb 0.3 % (0.0-1.5); Arterial Total Hemglobin 12.3 g/dl (12.0-18.0); Arterial pCO2 39.8 mmhg (35-45); MODE MASK - NRB; Site LB
[2018-03-08] MEDS: LORATADINE 10 MG TAB PO ×2 (08:35→09:00)
[2018-03-08] MEDS: FAMOTIDINE 20 MG INJ IV ×2 (08:35→20:37)
[2018-03-08] MEDS: BENAZEPRIL 40 MG TAB PO (08:35)
[2018-03-08] MEDS: FINASTERIDE 5 MG TAB PO (08:36)
[2018-03-08] MEDS: METOPROLOL 50 MG TAB PO ×3 (08:36→20:37)
[2018-03-08] MEDS: CEFTRIAXONE 1 GM/50 ML (PMX) 50 ML IVPB (08:36)
[2018-03-08] MEDS: ASPIRIN (EC) 81 MG TAB PO (08:36)
[2018-03-08] MEDS: ENOXAPARIN 40 MG/0.4 ML SYG SC ×2 (08:47→20:45)
[2018-03-08] MEDS: INSULIN ASPART [NOVOLOG] 3 ML PEN SC ×4 (10:12→20:45)
[2018-03-08] MEDS ORDERED: morphine LIQ (10 MG/5 ML) CUP PO (13:30)
[2018-03-08 14:56] LABS: CREATINE KINASE 59 IU/L (23-200)
[2018-03-08 15:08] LABS: CK INDEX 7.4; CK-MB 4.34 ng/ml (0.0-2.4)
[2018-03-08 15:21] LABS: TROPONIN-I 0.874 ng/ml (0.000-0.120)
[2018-03-08] MEDS: ATORVASTATIN 80 MG TAB PO (20:36)
[2018-03-08] MEDS: TAMSULOSIN (SR) 0.4 MG CAP PO (20:37)
[2018-03-08] MEDS: BENAZEPRIL 20 MG TAB PO (20:37)
[2018-03-08] MEDS: ZOLPIDEM 5 MG TAB PO (20:39)
[2018-03-08 20:56] LABS: CREATINE KINASE 47 IU/L (23-200)
[2018-03-08 21:08] LABS: CK INDEX 6.3; CK-MB 2.96 ng/ml (0.0-2.4)
[2018-03-08 21:14] LABS: TROPONIN-I 0.683 ng/ml (0.000-0.120)
[2018-03-09] MEDS: HYDROCODONE/APAP (5/325) TAB PO ×5 (00:42→20:20)
[2018-03-09] MEDS: LEVALBUTEROL (NEB) 0.63 MG/3 ML AMP HHN ×6 (01:29→20:00)
[2018-03-09] MEDS: ACCU-CHEK XX (02:00)
[2018-03-09] MEDS: LORAZEPAM 1 MG TAB PO ×2 (04:55→16:29)
[2018-03-09 05:21] LABS: ADD MAN DIFF? NO
[2018-03-09 05:28] LABS: WHITE BLOOD COUNT 14.6 10^3/ul (4.8-10.8)
[2018-03-09 05:28] LABS: BASOPHILS % 0.1 % (0.0-2.0); HEMOGLOBIN 11.3 g/dl (14.0-18.0); LYMPHOCYTES # 0.8 10^3/ul (0.8-2.9); LYMPHOCYTES % 5.3 % (15.0-51.0); MEAN CORPUSCULAR HEMOGLOBIN 25.9 pg (29.0-33.0); MEAN CORPUSCULAR HGB CONC 33.2 g/dl (32.0-37.0); MEAN CORPUSCULAR VOLUME 77.8 fl (82.0-101.0); MONOCYTE # 0.7 10^3/ul (0.3-0.9); MONOCYTES % 4.8 % (0.0-11.0); NEUTROPHIL # 12.9 10^3/ul (1.6-7.5); NEUTROPHILS % 88.6 % (39.0-77.0); PLATELET COUNT 298 10^3/UL (140-415); RED BLOOD COUNT 4.37 10^6/ul (4.70-6.10); RED CELL DISTRIBUTION WIDTH 17.3 % (11.5-14.5)
[2018-03-09] MEDS: METHYLPREDNISOLONE 40 MG INJ IV ×4 (05:37→23:51)
[2018-03-09 05:43] LABS: INR 0.91; PROTIME 12.3 Sec (11.9-14.9)
[2018-03-09 05:44] LABS: PARTIAL THROMBOPLASTIN TIME 28.5 Sec (25.0-35.0)
[2018-03-09 05:50] LABS: ANION GAP 17 (8-16); BLOOD UREA NITROGEN 16 mg/dl (7-20); CALCIUM 8.7 mg/dl (8.4-10.2); CARBON DIOXIDE 26 mmol/L (21-31); CHLORIDE 95 mmol/L (97-110); CREATININE 0.55 mg/dl (0.61-1.24); GLUCOSE 143 mg/dl (70-220); MAGNESIUM 1.9 mg/dl (1.7-2.5); PHOSPHORUS 4.3 mg/dl (2.5-4.9); POTASSIUM 4.3 mmol/L (3.5-5.1); SODIUM 134 mmol/L (135-144)
[2018-03-09] MEDS: SOD CHLORIDE 0.9% 1,000 ML IV ×2 (07:35→14:46)
[2018-03-09] MEDS: INSULIN ASPART [NOVOLOG] 3 ML PEN SC ×4 (07:35→20:35)
[2018-03-09 07:39] LABS: AADO2 Arterial 547.4 mmHg (7.0-24.0); Arterial Base Excess 2.8 mmol/L (-3.0-3); Arterial Blood Gas Oxygen Sat 98.3 mmHG (95.0-98.0); Arterial COHb 0.7 % (0.0-3.0); Arterial Fraction of Oxyhgb 97.4 % (93.0-99.0); Arterial HCO3 26.9 mmol/L (22.0-26.0); Arterial MetHb 0.2 % (0.0-1.5); Arterial Total Hemglobin 11.9 g/dl (12.0-18.0); Arterial pCO2 39.7 mmhg (35-45); MODE HFNC; Site LB
[2018-03-09] MEDS: LORATADINE 10 MG TAB PO (07:49)
[2018-03-09] MEDS: FINASTERIDE 5 MG TAB PO (08:40)
[2018-03-09] MEDS: BENAZEPRIL 40 MG TAB PO (08:40)
[2018-03-09] MEDS: FAMOTIDINE 20 MG INJ IV ×2 (08:40→20:20)
[2018-03-09] MEDS: METOPROLOL 50 MG TAB PO ×3 (08:40→20:20)
[2018-03-09] MEDS: ASPIRIN (EC) 81 MG TAB PO (08:40)
[2018-03-09] MEDS: CEFTRIAXONE 1 GM/50 ML (PMX) 50 ML IVPB (08:40)
[2018-03-09] MEDS: DEXTROSE 5%-0.45% NACL 500 ML IV (08:40)
[2018-03-09] MEDS: ENOXAPARIN 40 MG/0.4 ML SYG SC ×2 (08:48→20:36)
[2018-03-09] MEDS ORDERED: LIDOCAINE 1% (MDV) 10 ML INJ (13:15)
[2018-03-09] MEDS ORDERED: IODIXANOL LOCM 100 ML BTL (13:15)
[2018-03-09] MEDS ORDERED: HEPARIN 1000 UNITS/ML 10 ML INJ (13:15)
[2018-03-09] MEDS ORDERED: FENTAnyl 50 MCG/ML VIAL (13:16)
[2018-03-09] MEDS ORDERED: MIDAZOLAM 1 MG/ML 2 ML INJ (13:16)
[2018-03-09] MEDS ORDERED: IODIXANOL LOCM 50 ML BTL (14:11)
[2018-03-09] MEDS ORDERED: BIVALIRUDIN 250MG /NS 50 ML 50 ML IVPB (14:11)
[2018-03-09] MEDS ORDERED: NITROGLYCERIN (IC) 100 MCG/ML INJ (14:26)
[2018-03-09] MEDS ORDERED: CLOPIDOGREL 300 MG TAB (14:37)
[2018-03-09] MEDS ORDERED: AL HYDROX/MG HYDROX/SIMETH 30 ML CUP PO (15:00)
[2018-03-09] MEDS ORDERED: ONDANSETRON 4 MG INJ IV (15:00)
[2018-03-09] MEDS ORDERED: GLUCOSE GEL 15 GRAM TUBE PO ×2 (15:30)
[2018-03-09] MEDS ORDERED: GLUCAGON 1 MG INJ IM (15:30)
[2018-03-09] MEDS ORDERED: GLUCOSE GEL 15 GRAM TUBE BUCCAL (15:30)
[2018-03-09] MEDS ORDERED: DEXTROSE 50% 50 ML SYRINGE IV ×2 (15:30)
[2018-03-09] MEDS: DIPHENHYDRAMINE 50 MG CAP PO (15:49)
[2018-03-09] MEDS: DIAZEPAM 5 MG TAB PO (15:51)
[2018-03-09] MEDS: ACETAMINOPHEN 325 MG TAB PO (18:26)
[2018-03-09] MEDS: morphine 2 MG INJ IV (20:03)
[2018-03-09] MEDS: ATORVASTATIN 80 MG TAB PO (20:19)
[2018-03-09] MEDS: TAMSULOSIN (SR) 0.4 MG CAP PO (20:19)
[2018-03-09] MEDS: BENAZEPRIL 20 MG TAB PO (20:20)
[2018-03-09] MEDS: ZOLPIDEM 5 MG TAB PO (23:51)
[2018-03-10] MEDS: LORAZEPAM 1 MG TAB PO ×3 (00:29→17:08)
[2018-03-10] MEDS: HYDROCODONE/APAP (5/325) TAB PO ×5 (00:31→23:05)
[2018-03-10] MEDS: LEVALBUTEROL (NEB) 0.63 MG/3 ML AMP HHN ×6 (01:30→19:27)
[2018-03-10] MEDS: ACCU-CHEK XX (01:35)
[2018-03-10] MEDS: OXYCODONE/ACETAMINOPHEN (5/325) TAB PO ×3 (03:42→20:45)
[2018-03-10 05:28] LABS: ADD MAN DIFF? NO
[2018-03-10 05:30] LABS: BASOPHILS % 0.2 % (0.0-2.0); EOSINOPHILS % 0.1 % (0.0-7.0); HEMATOCRIT 30.9 % (42.0-52.0); HEMOGLOBIN 10.3 g/dl (14.0-18.0); LYMPHOCYTES # 0.6 10^3/ul (0.8-2.9); LYMPHOCYTES % 3.2 % (15.0-51.0); MEAN CORPUSCULAR HEMOGLOBIN 25.7 pg (29.0-33.0); MEAN CORPUSCULAR HGB CONC 33.3 g/dl (32.0-37.0); MEAN CORPUSCULAR VOLUME 77.1 fl (82.0-101.0); MEAN PLATELET VOLUME 8.9 fl (7.4-10.4); MONOCYTE # 1.3 10^3/ul (0.3-0.9); MONOCYTES % 6.8 % (0.0-11.0); NEUTROPHIL # 17.5 10^3/ul (1.6-7.5); NEUTROPHILS % 88.4 % (39.0-77.0); PLATELET COUNT 279 10^3/UL (140-415); RED BLOOD COUNT 4.01 10^6/ul (4.70-6.10); RED CELL DISTRIBUTION WIDTH 17.2 % (11.5-14.5)
[2018-03-10 05:30] LABS: WHITE BLOOD COUNT 19.8 10^3/ul (4.8-10.8)
[2018-03-10 06:04] LABS: ANION GAP 12 (8-16); BLOOD UREA NITROGEN 17 mg/dl (7-20); CALCIUM 8.1 mg/dl (8.4-10.2); CARBON DIOXIDE 29 mmol/L (21-31); CHLORIDE 94 mmol/L (97-110); CREATININE 0.59 mg/dl (0.61-1.24); GLUCOSE 159 mg/dl (70-220); SODIUM 131 mmol/L (135-144)
[2018-03-10] MEDS: METHYLPREDNISOLONE 40 MG INJ IV ×4 (06:17→23:05)
[2018-03-10] MEDS: FAMOTIDINE 20 MG INJ IV ×2 (08:17→20:45)
[2018-03-10] MEDS: FINASTERIDE 5 MG TAB PO (08:18)
[2018-03-10] MEDS: CLOPIDOGREL 75 MG TAB PO (08:18)
[2018-03-10] MEDS: LORATADINE 10 MG TAB PO (08:18)
[2018-03-10] MEDS: BENAZEPRIL 40 MG TAB PO (08:18)
[2018-03-10] MEDS: METOPROLOL 50 MG TAB PO ×3 (08:18→20:46)
[2018-03-10] MEDS: ENOXAPARIN 40 MG/0.4 ML SYG SC ×2 (08:20→21:16)
[2018-03-10] MEDS: CEFTRIAXONE 1 GM/50 ML (PMX) 50 ML IVPB (08:20)
[2018-03-10] MEDS: INSULIN ASPART [NOVOLOG] 3 ML PEN SC ×4 (08:33→21:11)
[2018-03-10] MEDS: ASPIRIN (EC) 81 MG TAB PO (08:46)
[2018-03-10] MEDS ORDERED: ASPIRIN (EC) 81 MG TAB PO (09:00)
[2018-03-10] MEDS: LIDOCAINE 1% (MPF) 5 ML VIAL SC (09:30)
[2018-03-10] MEDS ORDERED: hydrALAzine 20 MG INJ IV (10:00)
[2018-03-10] MEDS: FUROSEMIDE 20 MG INJ IV (10:29)
[2018-03-10 11:39] LABS: CREATINE KINASE 35 IU/L (23-200)
[2018-03-10] MEDS ORDERED: FUROSEMIDE 40 MG INJ IV (12:00)
[2018-03-10 13:04] LABS: CK INDEX 2.5; CK-MB 0.86 ng/ml (0.0-2.4)
[2018-03-10 13:13] LABS: TROPONIN-I 0.302 ng/ml (0.000-0.120)
[2018-03-10] MEDS: FUROSEMIDE 40 MG INJ IV (15:52)
[2018-03-10] MEDS: ATORVASTATIN 80 MG TAB PO (20:45)
[2018-03-10] MEDS: BENAZEPRIL 20 MG TAB PO (20:46)
[2018-03-10] MEDS: TAMSULOSIN (SR) 0.4 MG CAP PO (20:46)
[2018-03-11] MEDS: LORAZEPAM 1 MG TAB PO ×3 (01:08→20:01)
[2018-03-11] MEDS: LEVALBUTEROL (NEB) 0.63 MG/3 ML AMP HHN ×2 (01:09→05:10)
[2018-03-11] MEDS: ACCU-CHEK XX (01:52)
[2018-03-11] MEDS: ACETAMINOPHEN 325 MG TAB PO (03:30)
[2018-03-11 05:24] LABS: ADD MAN DIFF? NO
[2018-03-11 05:33] LABS: WHITE BLOOD COUNT 21.7 10^3/ul (4.8-10.8)
[2018-03-11 05:33] LABS: BASOPHILS % 0.1 % (0.0-2.0); HEMATOCRIT 29.8 % (42.0-52.0); HEMOGLOBIN 9.9 g/dl (14.0-18.0); LYMPHOCYTES # 0.7 10^3/ul (0.8-2.9); LYMPHOCYTES % 3.4 % (15.0-51.0); MEAN CORPUSCULAR HEMOGLOBIN 25.3 pg (29.0-33.0); MEAN CORPUSCULAR HGB CONC 33.2 g/dl (32.0-37.0); MEAN CORPUSCULAR VOLUME 76.2 fl (82.0-101.0); MEAN PLATELET VOLUME 9.3 fl (7.4-10.4); MONOCYTE # 0.9 10^3/ul (0.3-0.9); NEUTROPHIL # 19.7 10^3/ul (1.6-7.5); NEUTROPHILS % 90.6 % (39.0-77.0); NUCLEATED RED BLOOD CELLS% 0.1 /100WBC (0.0-0.0); PLATELET COUNT 309 10^3/UL (140-415); RED BLOOD COUNT 3.91 10^6/ul (4.70-6.10); RED CELL DISTRIBUTION WIDTH 17.5 % (11.5-14.5)
[2018-03-11] MEDS: METHYLPREDNISOLONE 40 MG INJ IV ×3 (05:48→18:07)
[2018-03-11 05:53] LABS: ANION GAP 10 (8-16); BLOOD UREA NITROGEN 22 mg/dl (7-20); CARBON DIOXIDE 33 mmol/L (21-31); CHLORIDE 89 mmol/L (97-110); CREATININE 0.68 mg/dl (0.61-1.24); GLUCOSE 154 mg/dl (70-220); MAGNESIUM 2.1 mg/dl (1.7-2.5); PHOSPHORUS 4.2 mg/dl (2.5-4.9); POTASSIUM 4.1 mmol/L (3.5-5.1); SODIUM 128 mmol/L (135-144)
[2018-03-11] MEDS: FUROSEMIDE 40 MG INJ IV (09:20)
[2018-03-11] MEDS: METOPROLOL 50 MG TAB PO ×3 (09:20→21:02)
[2018-03-11] MEDS: CEFTRIAXONE 1 GM/50 ML (PMX) 50 ML IVPB (09:20)
[2018-03-11] MEDS: FAMOTIDINE 20 MG INJ IV ×2 (09:20→21:02)
[2018-03-11] MEDS: CLOPIDOGREL 75 MG TAB PO (09:20)
[2018-03-11] MEDS: ASPIRIN (EC) 81 MG TAB PO (09:20)
[2018-03-11] MEDS: LORATADINE 10 MG TAB PO (09:21)
[2018-03-11] MEDS: FINASTERIDE 5 MG TAB PO (09:21)
[2018-03-11] MEDS: HYDROCODONE/APAP (5/325) TAB PO ×3 (09:21→23:50)
[2018-03-11] MEDS: BENAZEPRIL 40 MG TAB PO (09:21)
[2018-03-11] MEDS: ENOXAPARIN 40 MG/0.4 ML SYG SC ×2 (09:22→21:10)
[2018-03-11] MEDS: INSULIN ASPART [NOVOLOG] 3 ML PEN SC ×4 (09:23→20:54)
[2018-03-11] MEDS: OXYCODONE/ACETAMINOPHEN (5/325) TAB PO ×2 (13:20→20:06)
[2018-03-11] MEDS: ALBUTEROL/IPRATROPIUM (NEB) 3 ML AMP NEB ×2 (14:44→20:13)
[2018-03-11] MEDS: ATORVASTATIN 80 MG TAB PO (21:02)
[2018-03-11] MEDS: TAMSULOSIN (SR) 0.4 MG CAP PO (21:02)
[2018-03-11] MEDS: BENAZEPRIL 20 MG TAB PO (21:03)
[2018-03-12] MEDS: ALBUTEROL/IPRATROPIUM (NEB) 3 ML AMP NEB ×4 (01:49→19:51)
[2018-03-12] MEDS: ACCU-CHEK XX (02:00)
[2018-03-12] MEDS: OXYCODONE/ACETAMINOPHEN (5/325) TAB PO ×4 (03:12→21:07)
[2018-03-12] MEDS: LORAZEPAM 1 MG TAB PO ×3 (04:06→22:56)
[2018-03-12 04:25] LABS: ADD MAN DIFF? NO
[2018-03-12 04:28] LABS: ABNORMAL IP MESSAGE 1; BASOPHILS % 0.2 % (0.0-2.0); HEMOGLOBIN 9.9 g/dl (14.0-18.0); LYMPHOCYTES # 0.7 10^3/ul (0.8-2.9); LYMPHOCYTES % 2.6 % (15.0-51.0); MEAN CORPUSCULAR HEMOGLOBIN 26.3 pg (29.0-33.0); MEAN CORPUSCULAR HGB CONC 34.1 g/dl (32.0-37.0); MEAN CORPUSCULAR VOLUME 77.1 fl (82.0-101.0); MEAN PLATELET VOLUME 9.1 fl (7.4-10.4); MONOCYTE # 0.9 10^3/ul (0.3-0.9); MONOCYTES % 3.5 % (0.0-11.0); NEUTROPHIL # 22.9 10^3/ul (1.6-7.5); NUCLEATED RED BLOOD CELLS # 0.1 10^3/ul (0.0-0.0); NUCLEATED RED BLOOD CELLS% 0.2 /100WBC (0.0-0.0); PLATELET COUNT 306 10^3/UL (140-415); POSITIVE DIFF @See below; RED BLOOD COUNT 3.76 10^6/ul (4.70-6.10); RED CELL DISTRIBUTION WIDTH 17.7 % (11.5-14.5)
[2018-03-12 04:28] LABS: WHITE BLOOD COUNT 24.9 10^3/ul (4.8-10.8)
[2018-03-12 04:48] LABS: ANION GAP 13 (8-16); BLOOD UREA NITROGEN 25 mg/dl (7-20); CALCIUM 8.1 mg/dl (8.4-10.2); CARBON DIOXIDE 33 mmol/L (21-31); CHLORIDE 87 mmol/L (97-110); CREATININE 0.68 mg/dl (0.61-1.24); GLUCOSE 193 mg/dl (70-220); MAGNESIUM 2.2 mg/dl (1.7-2.5); PHOSPHORUS 3.9 mg/dl (2.5-4.9); POTASSIUM 3.8 mmol/L (3.5-5.1); SODIUM 129 mmol/L (135-144)
[2018-03-12] MEDS: METHYLPREDNISOLONE 40 MG INJ IV ×5 (05:50→23:59)
[2018-03-12 08:04] LABS: AADO2 Arterial 604.5 mmHg (7.0-24.0); Allen Test ACCEPTAB; Arterial Base Excess 5.4 mmol/L (-3.0-3); Arterial Blood Gas Oxygen Sat 92.8 mmHG (95.0-98.0); Arterial COHb 1.6 % (0.0-3.0); Arterial Fraction of Oxyhgb 91.2 % (93.0-99.0); Arterial HCO3 29.3 mmol/L (22.0-26.0); Arterial MetHb 0.1 % (0.0-1.5); Arterial Total Hemglobin 11.6 g/dl (12.0-18.0); MODE HFNC; Site Right Radial
[2018-03-12] MEDS: morphine 2 MG INJ IV ×2 (08:49→18:25)
[2018-03-12] MEDS: INSULIN ASPART [NOVOLOG] 3 ML PEN SC ×4 (08:57→20:57)
[2018-03-12] MEDS: ALPRAZOLAM 0.5 MG TAB PO ×2 (09:00→17:25)
[2018-03-12] MEDS: LORATADINE 10 MG TAB PO (09:00)
[2018-03-12] MEDS: FINASTERIDE 5 MG TAB PO (09:01)
[2018-03-12] MEDS: METOPROLOL 50 MG TAB PO ×3 (09:01→20:53)
[2018-03-12] MEDS: FUROSEMIDE 40 MG INJ IV (09:02)
[2018-03-12] MEDS: BENAZEPRIL 40 MG TAB PO (09:02)
[2018-03-12] MEDS: CLOPIDOGREL 75 MG TAB PO (09:02)
[2018-03-12] MEDS: ASPIRIN (EC) 81 MG TAB PO (09:03)
[2018-03-12] MEDS: CEFTRIAXONE 1 GM/50 ML (PMX) 50 ML IVPB (09:03)
[2018-03-12] MEDS: ENOXAPARIN 40 MG/0.4 ML SYG SC ×2 (09:05→20:55)
[2018-03-12] MEDS: FAMOTIDINE 20 MG INJ IV ×2 (09:59→20:51)
[2018-03-12] MEDS ORDERED: VANCOMYCIN IV PER PHARMACY XX (11:00)
[2018-03-12] MEDS: HYDROCODONE/APAP (5/325) TAB PO (12:47)
[2018-03-12] MEDS: CEFEPIME 2GM/50 ML (PMX) 50 ML IVPB ×2 (13:03→20:30)
[2018-03-12] MEDS: GUAIFENESIN 20 MG/ML 5ML CUP PO (13:41)
[2018-03-12] MEDS: VANCOMYCIN 1.5 GM in SOD CHLORIDE 0.9% 250 ML IVPB (14:22)
[2018-03-12] MEDS: TAMSULOSIN (SR) 0.4 MG CAP PO (20:52)
[2018-03-12] MEDS: ATORVASTATIN 80 MG TAB PO (20:52)
[2018-03-12] MEDS: BENAZEPRIL 20 MG TAB PO (20:53)
[2018-03-12] MEDS: HYDROCODONE/HOMATROPINE 5ML CUP PO (22:55)
[2018-03-13] MEDS: VANCOMYCIN 1 GM 250 ML IVPB (00:27)
[2018-03-13] MEDS ORDERED: EPINEPHrine 0.1 MG/ML SYG ×3 (01:43→07:00)
[2018-03-13] MEDS ORDERED: NORepinephrine 8MG/250 ML (PMX 250 ML (01:50)
[2018-03-13] MEDS: ALBUTEROL/IPRATROPIUM (NEB) 3 ML AMP NEB (02:00)
[2018-03-13] MEDS ORDERED: DOPamine-D5W 1.6 MG/ML 250 ML (02:01)
[2018-03-13] MEDS ORDERED: PHENYLephrine 20MG IN 250 ML 250 ML (02:47)
[2018-03-13 02:58] LABS: WHITE BLOOD COUNT 31.8 10^3/ul (4.8-10.8)
[2018-03-13 02:58] LABS: ABNORMAL IP MESSAGE 1; HEMATOCRIT 30.3 % (42.0-52.0); HEMOGLOBIN 9.2 g/dl (14.0-18.0); MEAN CORPUSCULAR HEMOGLOBIN 26.2 pg (29.0-33.0); MEAN CORPUSCULAR HGB CONC 30.4 g/dl (32.0-37.0); MEAN CORPUSCULAR VOLUME 86.3 fl (82.0-101.0); MEAN PLATELET VOLUME 10.1 fl (7.4-10.4); NUCLEATED RED BLOOD CELLS% 1.5 /100WBC (0.0-0.0); PLATELET COUNT 290 10^3/UL (140-415); POSITIVE DIFF @See below; RED BLOOD COUNT 3.51 10^6/ul (4.70-6.10); RED CELL DISTRIBUTION WIDTH 18.6 % (11.5-14.5)
[2018-03-13] MEDS ORDERED: PHENYLephrine 40 MG in DEXTROSE 5% 496 ML IV (03:00)
[2018-03-13 03:03] LABS: ADD MAN DIFF? YES
[2018-03-13 03:20] LABS: ANION GAP 28 (8-16); BLOOD UREA NITROGEN 23 mg/dl (7-20); CALCIUM 6.9 mg/dl (8.4-10.2); CARBON DIOXIDE 18 mmol/L (21-31); CHLORIDE 87 mmol/L (97-110); MAGNESIUM 2.9 mg/dl (1.7-2.5); POTASSIUM 5.1 mmol/L (3.5-5.1); SODIUM 128 mmol/L (135-144)
[2018-03-13 03:24] LABS: GLUCOSE 540 mg/dl (70-220)
[2018-03-13 04:19] LABS: ANISOCYTOSIS 2+ (0-0); BAND NEUTROPHILS #M 0.9 10^3/ul (0.0-0.6); BAND NEUTROPHILS % (M) 3 % (0-4); BURR CELLS 3+ (0-0); EOSINOPHILS % (M) 1 % (0-7); ERYTHROBLAST% (NRBC) (M) 1 % (0-0); LYMPHOCYTES #M 3.1 10^3/ul (0.8-2.9); LYMPHOCYTES % (M) 10 % (15-51); METAMYELOCYTES #M 0.9 10^3/ul (0.0-0.0); METAMYELOCYTES %M 3 % (0-0); MICROCYTOSIS 1+ (0-0); MYELOCYTES #M 1.9 10^3/ul (0.0-0.0); MYELOCYTES % (M) 6 % (0-0); OVALOCYTES 2+ (0-0); PLATELET ESTIMATE NORMAL; POIKILOCYTOSIS 3+ (0-0); POLYCHROMASIA 1+ (0-0); PROMYELOCYTES #M 0.3 10^3/ul (0-0); PROMYELOCYTES % (M) 1 % (0-0); REACTIVE LYMPHOCYTES #M 0.3 10^3/ul (0.0-0.0); REACTIVE LYMPHOCYTES% (M) 1 % (0-0); SEG NEUT #M 24.1 10^3/ul (1.6-7.5); SEGMENTED NEUTROPHILS (M) % 75 % (39-77); SMUDGE%M 2 % (0-0)
[2018-03-13] MEDS ORDERED: NA BICARBONATE 8.4% 50 ML SYG (07:00)
[2018-03-13] MEDS ORDERED: INSULIN DETEMIR [LEVEMIR] (100 UNITS/ML) SYG SC (08:00)
[2018-03-14 13:26] LABS: PROCALCITONIN <0.10 ng/mL (<0.10)
== END 2018-03-13 03:05 | disposition expired | DRG 981 ==
LOC: ICU 03-12 11:42 → E/R 01:46 → ICU 04:36
PROC: 027034Z Dilation of Coronary Artery, One Artery with Drug-eluting Intraluminal Device, Percutaneous Approach (ICD-10-PCS; principal; 2018-03-09 13:11)
PROC: 4A023N7 Measurement of Cardiac Sampling and Pressure, Left Heart, Percutaneous Approach (ICD-10-PCS; 2018-03-09 13:11)
PROC: B211YZZ Fluoroscopy of Multiple Coronary Arteries using Other Contrast (ICD-10-PCS; 2018-03-09 13:11)
PROC: B212YZZ Fluoroscopy of Single Coronary Artery Bypass Graft using Other Contrast (ICD-10-PCS; 2018-03-09 13:11)
PROC: B218YZZ Fluoroscopy of Left Internal Mammary Bypass Graft using Other Contrast (ICD-10-PCS; 2018-03-09 13:11)
PROC: B215YZZ Fluoroscopy of Left Heart using Other Contrast (ICD-10-PCS; 2018-03-09 13:11)
PROC: 02HV33Z Insertion of Infusion Device into Superior Vena Cava, Percutaneous Approach (ICD-10-PCS; 2018-03-09 13:11)
PROC: 5A12012 Performance of Cardiac Output, Single, Manual (ICD-10-PCS; 2018-03-09 13:11)
PROC: 0BH17EZ Insertion of Endotracheal Airway into Trachea, Via Natural or Artificial Opening (ICD-10-PCS; 2018-03-09 13:11)
PROC: 5A1935Z Respiratory Ventilation, Less than 24 Consecutive Hours (ICD-10-PCS; 2018-03-09 13:11)
DX: J96.01 Acute respiratory failure with hypoxia (principal); I21.4 Non-ST elevation (NSTEMI) myocardial infarction; E87.1 Hypo-osmolality and hyponatremia; E87.2 Acidosis; E87.8 Other disorders of electrolyte and fluid balance, not elsewhere classified; J84.112 Idiopathic pulmonary fibrosis; I10 Essential (primary) hypertension; I25.10 Atherosclerotic heart disease of native coronary artery without angina pectoris; I25.82 Chronic total occlusion of coronary artery; J43.9 Emphysema, unspecified; J40 Bronchitis, not specified as acute or chronic; D64.9 Anemia, unspecified; E11.9 Type 2 diabetes mellitus without complications; I46.8 Cardiac arrest due to other underlying condition; R79.89 Other specified abnormal findings of blood chemistry; Z95.1 Presence of aortocoronary bypass graft; Z79.02 Long term (current) use of antithrombotics/antiplatelets; Z79.82 Long term (current) use of aspirin; Z87.891 Personal history of nicotine dependence
CPT/HCPCS: 31500; 36415; 36569; 36600; 71045; 71275; 76937; 80048; 80053; 82550; 82553; 82803; 82962; 83036; 83605; 83735; 84100; 84145; 84484; 85025; 85610; 85730; 87040; 87081; 92950; 93005; 93306; 93459; 94002; 94640; 94644; 94664; 96374; 99291-25